=== PATIENT | female | born 1955 | race Caucasian/White ===

== ENCOUNTER → 2018-03-28 | Day surgery (SDC) | payer OTHER ==
[~2018-03-28] MED LIST: AMLODIPINE BESYL5 MG PO; AMLODIPINE-BEN1 EAC5 PO; ATORVASTATIN CA20 MG PO; BENAZEPRIL HCL20 MG PO; CYCLOBENZAPRINE10 MG PO; FENTANYL CITRATE/PF 100MCG/2 ML INJ ONE; HYOSCYAMINE SULFATE 0.5 MG/ML AMP ONE; MIDAZOLAM HCL 2 MG/2 ML VIAL ONE; NP THYROID60 MG PO; ONDANSETRON HCL INJ 2 MG/ML VIAL ONE; PANTOPRAZOLE SO40 MG PO; PROPOFOL IV EMULSION 10 MG/ML 50 ML VIAL ONE
[2018-03-28 09:40] VITALS: BP 133/73
--- NOTE | 2018-03-28 09:47 | Operative Report ---
DATE OF PROCEDURE: March 28, 2018 REFERRING PHYSICIAN: Dr. Rosendo Pompa PROCEDURE PERFORMED: Colonoscopy and polypectomy with biopsies. INDICATIONS FOR COLONOSCOPY: Constipation and history of colon polyps. MEDICATION: Patient was done under MAC. Please see anesthesiologist's note. PROCEDURE: With the patient in the left lateral decubitus position, the flexible fiberoptic Olympus colonoscope was inserted into the rectum with ease and passed with some difficulty all the way to the cecum. The sigmoid colon were sharply angulated and fixed, and was negotiated with some difficulty and suboptimally visualized. The scope was then withdrawn slowly and an 1 cm sessile polyp was noted in the cecum that was snared. Polypectomy site was hot biopsied. One minute polyp was hot biopsied from the cecum also. Diverticular disease was noted to be scattered throughout. The scope was then withdrawn slowly. Mucosa overlying the ascending colon appeared to be within normal limits. One polyp was hot biopsied from the transverse colon. One polyp was hot biopsied from the descending colon. The sigmoid colon as mentioned previously was sharply angulated and fixed, and even on the way out the proximal and midsigmoid was suboptimally visualized. There was a either a fairly prominent fold or lipoma in the proximal sigmoid colon and that was biopsied. The rectum grossly appeared to be within normal limits. The scope was then retroflexed into the distal rectum and small internal hemorrhoids were noted, none of which was actively bleeding. The scope was then straightened out. The rectosigmoid area, as well as the distal rectal area were decompressed. The scope was subsequently withdrawn. Patient tolerated the procedure well. IMPRESSION 1. Cecal polyps times 2, one snare and site hemoclipped, and 1 hot biopsied. 2. Cervantes diverticulosis. 3. Transverse colon polyp hot biopsied times 1. 4. Descending colon polyp hot biopsied times 1. 5. Sigmoid colon sharply angulated and fixed. Negotiated with difficulty and suboptimally visualized. 6. ?Lipoma in proximal sigmoid colon, biopsied. 7. Internal hemorrhoids, none actively bleeding. PLAN: Follow up histology. Initiate of Cassie 145 mcg 1 p.o. q.a.m. a.c. Timing of followup colonoscopy pending pathology report. Patient will need a CT scan of the abdomen and pelvis if not done already, and even possibly an air contrast barium enema for visualization of the sigmoid colon. Job#: [id number] RI cc: ROSENDO POMPA MD
== END | disposition home or self-care (01) ==
LOC: OR 07:11
PROVIDERS: ATTEND Internal Medicine Gastroenterology
DX: K59.00 Constipation, unspecified (principal); Z86.010 Personal history of colon polyps; K21.9 Gastro-esophageal reflux disease without esophagitis; I10 Essential (primary) hypertension; E78.00 Pure hypercholesterolemia, unspecified; K56.2 Volvulus; Z88.6 Allergy status to analgesic agent; Z68.35 Body mass index [BMI] 35.0-35.9, adult; D12.0 Benign neoplasm of cecum; K57.30 Diverticulosis of large intestine without perforation or abscess without bleeding; K63.5 Polyp of colon; K64.8 Other hemorrhoids; E78.5 Hyperlipidemia, unspecified; E05.90 Thyrotoxicosis, unspecified without thyrotoxic crisis or storm
CPT/HCPCS: 45384; 45385; 93005; J1980; J2250; J2405; 45378; 45380

== ENCOUNTER → 2019-05-02 | Outpatient (CLI) | payer OTHER ==
[~2019-05-02] MED LIST changes: -FENTANYL CITRATE/PF 100MCG/2 ML INJ ONE; -HYOSCYAMINE SULFATE 0.5 MG/ML AMP ONE; -MIDAZOLAM HCL 2 MG/2 ML VIAL ONE; -ONDANSETRON HCL INJ 2 MG/ML VIAL ONE; -PROPOFOL IV EMULSION 10 MG/ML 50 ML VIAL ONE
--- NOTE | 2019-05-02 12:29 | Diagnostic Imaging Report ---
EXAM: FL BARIUM ENEMA AIR AND BARIUM DOUBLE CONTRAST INDICATION: V76.51: Special screening for malignant neoplasms, colon. COMPARISON: None available. 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 Multiple bilateral pelvic phleboliths noted RECTUM: Mucosa: Unremarkable. Distensibility: Normal. SIGMOID COLON: Redundant sigmoid colon. ASCENDING, TRANSVERSE, AND DESCENDING COLON: Normal distensibility and mucosal appearance. Several distal descending colon diverticuli. CECUM AND APPENDIX: Normally distensible and demonstrates normal contours and mucosal pattern. No substantial reflux into the terminal ileum Fluoroscopy Time: 0.8 minutes Radiation dose: 22.8 mGy IMPRESSION: Redundant sigmoid colon. Several distal descending colon diverticuli. Otherwise, normal exam. Signed by: Eneida Gauthier MD on 05/02/2019 12:25 PM
== END ==
LOC: DX 08:26
PROVIDERS: ATTEND Internal Medicine Gastroenterology
DX: Z12.11 Encounter for screening for malignant neoplasm of colon (principal)
CPT/HCPCS: 74280

== ENCOUNTER 2019-09-06 06:10 | Inpatient (IN) | payer OTHER ==
[2019-09-01 14:57] LABS: BASOPHILS # (AUTO) 0.1 (0.0-0.1); BASOPHILS % 0.9 % (0.0-1.0); EOSINOPHILS # (AUTO) 0.4 (0.0-0.4); EOSINOPHILS % 3.9 % (0.0-6.0); HEMATOCRIT 42.4 % (34.2-44.1); HEMOGLOBIN 13.2 g/dL (12.0-16.0); LYMPHOCYTES # (AUTO) 2.7 (1.0-3.2); LYMPHOCYTES % 26.5 % (18.0-39.1); MEAN CORPUSCULAR HEMOGLOBIN 24.4 pg (28-32); MEAN CORPUSCULAR HGB CONC 31.1 g/dL (31-35); MEAN CORPUSCULAR VOLUME 78.4 fL (81-99); MONOCYTES # (AUTO) 0.9 (0.2-0.8); MONOCYTES % 9.1 % (4.4-11.3); NEUTROPHILS % 59.3 % (38.7-80.0); PLATELET COUNT 285 x10e3/uL (140-360); RED BLOOD COUNT 5.41 x10e6/uL (3.6-5.1); RED CELL DISTRIBUTION WIDTH 15.5 % (11.7-14.4)
--- NOTE | 2019-09-01 15:06 | Diagnostic Imaging Report ---
EXAMINATION: CHEST 2 VIEWS INDICATION: ^PRE-OP ^[id number] ^[id number] COMPARISON: None FINDINGS: PA and lateral views TUBES and LINES: None. LUNGS: Lungs are well inflated. Lungs are clear. There is no evidence of pneumonia or pulmonary edema. PLEURA: No pleural effusion or pneumothorax. HEART AND MEDIASTINUM: The cardiomediastinal silhouette is unremarkable. BONES AND SOFT TISSUES: No acute osseous lesion. Soft tissues are unremarkable. UPPER ABDOMEN: No free air under the diaphragm. IMPRESSION: No acute thoracic radiographic abnormality. Signed by: Nixon Carrasco MD on 09/01/2019 3:03 PM
[2019-09-01 15:13] LABS: ANION GAP 14.5 mmol/L (8-16); CALCIUM 9.7 mg/dL (8.4-10.2); CREATININE, SERUM 1.06 mg/dL (0.57-1.11); POTASSIUM 4.5 mmol/L (3.5-5.1)
[~2019-09-06] VITALS: Ht 160 cm; Wt 85.3 kg
[2019-09-06] VITALS (7 sets, daily range): BP systolic 90–101; BP diastolic 60–78
[~2019-09-06 06:10] MED LIST changes: +VITAMIN B-121000 MC2 PO
[2019-09-06] MEDS ORDERED: ACETAMINOPHEN 1000 MG/100 ML 100 ML IV ONE (08:42)
[2019-09-06] MEDS ORDERED: SCOPOLAMINE 1.5 MG PATCH ONE (08:42)
[2019-09-06] MEDS ORDERED: MINERAL OIL STERILE 10ML VIAL ONE (11:49)
[2019-09-06] MEDS ORDERED: GLYCOPYRROLATE INJ 0.2 MG/ML VIAL ONE (13:35)
[2019-09-06] MEDS ORDERED: NEOSTIGMINE 1 MG/ML 10ML VIAL ONE (13:35)
[2019-09-06] MEDS ORDERED: ONDANSETRON HCL INJ 2MG/ML 2ML 2 MG/ML VIAL ONE (13:35)
[2019-09-06] MEDS ORDERED: LIDOCAINE HCL 2% LOCAL INJ 5 ML SDV VIAL INJ ONE (13:35)
[2019-09-06] MEDS ORDERED: DEXAMETHASONE SOD PHOS INJ 4 MG/ML VIAL ONE (13:35)
[2019-09-06] MEDS ORDERED: ROCURONIUM BROMIDE 10 MG/ML 5ML VIAL ONE (13:35)
[2019-09-06] MEDS ORDERED: ACETAMINOPHEN 1000 MG/100 ML IV ONE (13:35)
[2019-09-06] MEDS ORDERED: PROPOFOL IV EMULSION 10 MG/ML 20 ML VIAL ONE (13:35)
[2019-09-06] MEDS ORDERED: SEVOFLURANE INHAL SOLN 250 ML PEN BTL ONE (13:35)
[2019-09-06] MEDS: SODIUM CHLORIDE 0.9% 1000ML 1,000 ML IV SCH ×2 (13:55→18:45)
[2019-09-06] MEDS ORDERED: NALOXONE HCL INJ 0.4 MG/ML AMP IV PRN (14:00)
[2019-09-06] MEDS ORDERED: HYDROMORPHONE 0.2MG/ML-SOD CHL 30ML PCA SYRINGE IV PRN (14:00)
[2019-09-06] MEDS ORDERED: ONDANSETRON HCL INJ 2MG/ML 2ML 2 MG/ML VIAL IV PRN (14:00)
[2019-09-06] MEDS ORDERED: HYDROMORPHONE 1MG/1ML INJ ONE (14:26)
[2019-09-06] MEDS ORDERED: PANTOPRAZOLE 40 MG 10ML VIAL IV SCH (16:00)
--- NOTE | 2019-09-06 16:18 | Operative Report ---
DATE OF PROCEDURE: 09/06/2019 SURGEON: Vega Penn MD PREOPERATIVE DIAGNOSES: Mass of the sigmoid colon with partial colonic obstruction and diverticulosis. POSTOPERATIVE DIAGNOSES: Mass of the sigmoid colon with partial colonic obstruction and diverticulosis. OPERATIONS PERFORMED: Exploratory laparotomy and low-anterior resection. ASSISTANTS: 1. Dr. Eddi Penn. 2. ILSA Whelan. ANESTHESIA: General. COMPLICATIONS: None. ESTIMATED BLOOD LOSS: 150 mL. DESCRIPTION OF PROCEDURE: With the patient lying in bed in the supine position with the legs in stirrups, the abdomen and perineum were prepped with Betadine solution and draped in the usual manner. A lower mid abdominal incision was made. It was carried down through the subcutaneous tissue down to the fascia from the patient's previous multiple surgeries. There was, however, a lot of adhesions. She had a plication of the abdominal wall and there were multiple Mersilene sutures that were removed. The midline fascia was then opened. The peritoneum was opened and the abdomen was entered. Upon entering the abdominal cavity, exploration revealed a palpable mass in the sigmoid colon with a tattoo that had previously been placed. There was lot of adhesions down in the pelvis with the sigmoid colon making a couple of loops down in the pelvis. There was some diverticulosis of the sigmoid colon. There was also multiple intra-abdominal adhesions from the patient's previous surgery. The patient had a hysterectomy, both ovaries were in place and appeared normal. We decided to go ahead and proceed with the planned colon resection. The left colon was then mobilized over the lateral gutter. The left ureter was identified and preserved. The left colon was then divided at the level of the descending colon with TEOFILO stapler. The mesentery of the colon was then slowly and carefully taken down using the EnSeal device. The adhesions in the pelvis were taken down and the colon was freed up. After this was done, the upper rectum was then freed up and divided between clamps and the specimen was sent for pathological examination. The descending colon easily reached down into the pelvis and the anastomosis was then performed. A posterior row of 2-0 silk was placed and after this was done, the clamp and the staple line of the proximal colon were removed. An internal row, the anastomosis was then performed with 3-0 chromic suture. Gloves and instruments were then changed. The anastomosis was then completed with an anterior row of seromuscular 3-0 silk. This gave us a satisfactory closure without any tension. The whole area was then thoroughly irrigated. Perfect hemostasis was ascertained. Some surrounding omentum was then tacked in the area to further cover the anastomosis. A 10 flat Humble-Ingram drain was then left in the pelvis and brought out through a separate stab wound incision and sutured to the skin with 2-0 silk and the wound was then closed in layers. The peritoneum was closed with a running suture of #1 Vicryl. The midline fascia was closed with a running suture of #1 Vicryl. The subcutaneous tissue was approximated with 2-0 Vicryl and the skin was closed with clips. A dressing was applied. The sponge, lap, and needle count was correct. The patient tolerated the procedure well and returned to the recovery room in stable condition. MD SAMIRA Lou/PAULINO /[id number]
[2019-09-06] MEDS ORDERED: HYDRALAZINE HCL 20 MG/ML VIAL IV PRN (16:30)
[2019-09-06] MEDS ORDERED: DICYCLOMINE HCL10 MG PO (17:03)
[2019-09-06] MEDS: PANTOPRAZOLE 40 MG 10ML VIAL IV SCH (17:34)
[2019-09-06] MEDS: SODIUM CHLORIDE 0.9% 250ML IRRIG IR SCH ×3 (17:34→21:25)
[2019-09-06] MEDS ORDERED: ACETAMINOPHEN 1000 MG/100 ML IV PRN (18:00)
[2019-09-06] MEDS ORDERED: MIDAZOLAM HCL 2 MG/2 ML VIAL ONE (18:14)
[2019-09-06] MEDS ORDERED: FENTANYL CITRATE/PF 100MCG/2 ML INJ ONE (18:14)
[2019-09-06] MEDS: PIPER-TAZ 3.375 GM 50 ML IV SCH ×2 (18:45→23:17)
[2019-09-07] VITALS (7 sets, daily range): BP systolic 96–135; BP diastolic 69–77
[2019-09-07] MEDS: SODIUM CHLORIDE 0.9% 250ML IRRIG IR SCH ×6 (02:15→21:31)
[2019-09-07] MEDS: PIPER-TAZ 3.375 GM 50 ML IV SCH ×3 (05:16→19:25)
[2019-09-07 05:41] LABS: BASOPHILS % 0.1 % (0.0-1.0); EOSINOPHILS % 0.1 % (0.0-6.0); HEMATOCRIT 38.1 % (34.2-44.1); HEMOGLOBIN 11.9 g/dL (12.0-16.0); LYMPHOCYTES # (AUTO) 0.8 (1.0-3.2); LYMPHOCYTES % 4.9 % (18.0-39.1); MEAN CORPUSCULAR HEMOGLOBIN 24.5 pg (28-32); MEAN CORPUSCULAR HGB CONC 31.2 g/dL (31-35); MEAN CORPUSCULAR VOLUME 78.6 fL (81-99); MONOCYTES # (AUTO) 0.8 (0.2-0.8); MONOCYTES % 4.8 % (4.4-11.3); NEUTROPHILS % 89.6 % (38.7-80.0); PLATELET COUNT 294 x10e3/uL (140-360); RED BLOOD COUNT 4.85 x10e6/uL (3.6-5.1); RED CELL DISTRIBUTION WIDTH 15.4 % (11.7-14.4)
[2019-09-07 06:04] LABS: ANION GAP 13.1 mmol/L (8-16); CALCIUM 8.8 mg/dL (8.4-10.2); CREATININE, SERUM 1.15 mg/dL (0.57-1.11); POTASSIUM 5.1 mmol/L (3.5-5.1)
[2019-09-07] MEDS: PANTOPRAZOLE 40 MG 10ML VIAL IV SCH (09:47)
[2019-09-07] MEDS: SODIUM CHLORIDE 0.9% 1000ML 1,000 ML IV SCH ×4 (10:40→21:55)
[2019-09-08] VITALS (8 sets, daily range): BP systolic 100–135; BP diastolic 67–77
[2019-09-08] MEDS: PIPER-TAZ 3.375 GM 50 ML IV SCH ×4 (00:21→17:55)
[2019-09-08] MEDS: SODIUM CHLORIDE 0.9% 250ML IRRIG IR SCH ×4 (02:30→14:02)
[2019-09-08] MEDS: SODIUM CHLORIDE 0.9% 1000ML 1,000 ML IV SCH ×3 (06:07→20:21)
[2019-09-08 06:10] LABS: BASOPHILS % 0.2 % (0.0-1.0); EOSINOPHILS % 0.1 % (0.0-6.0); HEMATOCRIT 35.8 % (34.2-44.1); HEMOGLOBIN 10.6 g/dL (12.0-16.0); LYMPHOCYTES # (AUTO) 1.6 (1.0-3.2); LYMPHOCYTES % 12.8 % (18.0-39.1); MEAN CORPUSCULAR HGB CONC 29.6 g/dL (31-35); MEAN CORPUSCULAR VOLUME 81.2 fL (81-99); MONOCYTES # (AUTO) 1.2 (0.2-0.8); MONOCYTES % 9.5 % (4.4-11.3); NEUTROPHILS # (AUTO) 9.4 (2.1-6.9); NEUTROPHILS % 77.1 % (38.7-80.0); PLATELET COUNT 257 x10e3/uL (140-360); RED BLOOD COUNT 4.41 x10e6/uL (3.6-5.1); RED CELL DISTRIBUTION WIDTH 15.9 % (11.7-14.4)
[2019-09-08 06:37] LABS: ANION GAP 10.9 mmol/L (8-16); CALCIUM 9.1 mg/dL (8.4-10.2); CREATININE, SERUM 1.03 mg/dL (0.57-1.11); POTASSIUM 4.9 mmol/L (3.5-5.1)
[2019-09-08] MEDS ORDERED: BISACODYL 10 MG SUPP PR ONE (08:00)
[2019-09-08] MEDS: PANTOPRAZOLE 40 MG 10ML VIAL IV SCH (10:03)
[2019-09-08] MEDS: HYDROMORPHONE 1MG/1ML INJ IV PRN ×2 (18:29→20:20)
[2019-09-08] MEDS: BISACODYL 10 MG SUPP PR SCH (20:21)
[2019-09-09] VITALS (8 sets, daily range): BP systolic 111–148; BP diastolic 64–79
[2019-09-09] MEDS: PIPER-TAZ 3.375 GM 50 ML IV SCH ×5 (00:12→23:03)
[2019-09-09] MEDS: HYDROMORPHONE 1MG/1ML INJ IV PRN ×3 (01:20→23:03)
[2019-09-09] MEDS: SODIUM CHLORIDE 0.9% 1000ML 1,000 ML IV SCH ×2 (01:36→13:49)
[2019-09-09] MEDS: BISACODYL 10 MG SUPP PR SCH (07:52)
[2019-09-09 09:37] LABS: BASOPHILS % 0.3 % (0.0-1.0); EOSINOPHILS # (AUTO) 0.2 (0.0-0.4); EOSINOPHILS % 2.4 % (0.0-6.0); HEMATOCRIT 36.6 % (34.2-44.1); HEMOGLOBIN 10.9 g/dL (12.0-16.0); LYMPHOCYTES % 19.3 % (18.0-39.1); MEAN CORPUSCULAR HEMOGLOBIN 23.7 pg (28-32); MEAN CORPUSCULAR HGB CONC 29.8 g/dL (31-35); MEAN CORPUSCULAR VOLUME 79.7 fL (81-99); MONOCYTES % 9.5 % (4.4-11.3); NEUTROPHILS % 68.1 % (38.7-80.0); PLATELET COUNT 254 x10e3/uL (140-360); RED BLOOD COUNT 4.59 x10e6/uL (3.6-5.1); RED CELL DISTRIBUTION WIDTH 15.4 % (11.7-14.4)
[2019-09-09 09:49] LABS: BLOOD UREA NITROGEN 13 mg/dL (7-26); BUN/CREATININE RATIO 16 (6-25); CALCIUM 9.3 mg/dL (8.4-10.2); CARBON DIOXIDE 28 mmol/L (22-29); CHLORIDE 103 mmol/L (98-107); CREATININE, SERUM 0.81 mg/dL (0.57-1.11); EST GLOMERULAR FILTRATION RATE > 60 ML/MIN (60-); GLUCOSE 73 mg/dL (74-118); SODIUM 139 mmol/L (136-145)
[2019-09-09] MEDS: PANTOPRAZOLE 40 MG 10ML VIAL IV SCH (09:57)
--- NOTE | 2019-09-09 11:57 | Progress Note ---
DATE: 09/09/2019 CHIEF COMPLAINT/HISTORY OF PRESENT ILLNESS: This is a 64-year-old white woman, who underwent exploratory laparotomy with low-anterior resection as well as sigmoid colon mass resection. The patient has underlying history of hypertensive heart disease. The patient currently voiced no complaints. The patient denies any nausea or vomiting. The patient has had abdominal pain. Blood work today reveals a white blood cell count 10,200 with 68% segmenters. Hemoglobin is 10.9 g. The patient's chemistries are within normal limits. REVIEW OF SYSTEMS: As per HPI. PHYSICAL EXAMINATION: GENERAL: She is awake, alert, and fully oriented, in no distress, very pleasant and calm. VITAL SIGNS: Blood pressure is 146/78, pulse 80, respiratory rate is 14, oxygen saturation 98% on room air, and temperature 98.5. Height 5 feet 3 inches, weighs 180 pounds, BMI 33. INTEGUMENT: Skin is warm and dry. No pallor, jaundice, or diaphoresis. HEENT: Anicteric sclerae. Moist mucous membranes. NECK: Supple. CARDIOVASCULAR: Distant heart sounds. Regular rhythm. LUNGS: No rales. No rhonchi or wheezes. ABDOMEN: Soft. Normal bowel sounds. The surgical incision is currently dressed. EXTREMITIES: No edema or deformity. NEURO: Intact. DIAGNOSES: 1. Status post exploratory laparotomy with low-anterior and sigmoid colon mass resection. 2. Hypertension. 3. Mild obesity, BMI 33. PLAN: 1. Follow complete blood count. 2. Follow renal function and electrolytes. 3. We will likely start clear liquids today. 4. Encourage incentive spirometer usage to prevent atelectasis. I spent 25 minutes in the care of this patient. MD LAURA Breaux/PAULINO /[id number] MAAME
[2019-09-10] VITALS (7 sets, daily range): BP systolic 125–171; BP diastolic 70–101
[2019-09-10] MEDS: SODIUM CHLORIDE 0.9% 1000ML 1,000 ML IV SCH (03:29)
[2019-09-10] MEDS: PIPER-TAZ 3.375 GM 50 ML IV SCH ×4 (06:03→23:39)
[2019-09-10 07:03] LABS: BASOPHILS % 0.4 % (0.0-1.0); EOSINOPHILS # (AUTO) 0.4 (0.0-0.4); EOSINOPHILS % 4.2 % (0.0-6.0); HEMATOCRIT 35.6 % (34.2-44.1); HEMOGLOBIN 11.3 g/dL (12.0-16.0); LYMPHOCYTES # (AUTO) 1.9 (1.0-3.2); LYMPHOCYTES % 20.5 % (18.0-39.1); MEAN CORPUSCULAR HEMOGLOBIN 24.6 pg (28-32); MEAN CORPUSCULAR HGB CONC 31.7 g/dL (31-35); MEAN CORPUSCULAR VOLUME 77.6 fL (81-99); MONOCYTES # (AUTO) 0.9 (0.2-0.8); NEUTROPHILS % 64.6 % (38.7-80.0); PLATELET COUNT 254 x10e3/uL (140-360); RED BLOOD COUNT 4.59 x10e6/uL (3.6-5.1)
[2019-09-10 07:27] LABS: ALANINE AMINOTRANSFERASE 25 IU/L (0-55); ALBUMIN 2.7 g/dL (3.5-5.0); ALBUMIN/GLOBULIN RATIO 0.7 (0.8-2.0); ALKALINE PHOSPHATASE 68 IU/L (40-150); ANION GAP 13.8 mmol/L (8-16); BLOOD UREA NITROGEN 9 mg/dL (7-26); BUN/CREATININE RATIO 12 (6-25); CALCIUM 9.3 mg/dL (8.4-10.2); CARBON DIOXIDE 31 mmol/L (22-29); CHLORIDE 101 mmol/L (98-107); CREATININE, SERUM 0.76 mg/dL (0.57-1.11); EST GLOMERULAR FILTRATION RATE > 60 ML/MIN (60-); GLUCOSE 82 mg/dL (74-118); POTASSIUM 3.8 mmol/L (3.5-5.1); SODIUM 142 mmol/L (136-145)
[2019-09-10] MEDS: PANTOPRAZOLE 40 MG 10ML VIAL IV SCH (09:21)
--- NOTE | 2019-09-10 11:00 | Progress Note ---
DATE: 09/10/2019 CHIEF COMPLAINT/HISTORY OF PRESENT ILLNESS: This is a 64-year-old white woman whose primary treating diagnosis is recent exploratory laparotomy with sigmoid mass resection. The patient has underlying history of hypertension. The patient currently voiced no complaints. The patient denies any nausea or vomiting. The patient states her pain is controlled. Blood work today on September 10, 2019, revealed white blood cell count 9200 with 64% segmenters. Hemoglobin is 11.3 g/dL. Also today, the patient's potassium is 3.8. The patient's BUN and creatinine of 9 and 0.76 respectively. Albumin level is 2.7 g/dL. The final diagnosis on the colonic mass is negative for malignancy. The pathology states that this obstructing mass is an ulcerated, pedunculated submucosal lipoma. The patient states that she is tolerating clear liquids quite well. REVIEW OF SYSTEMS: As per HPI. PHYSICAL EXAMINATION: GENERAL: She is awake, alert and fully oriented. She is very pleasant and cooperative with exam. VITAL SIGNS: Blood pressure is 160/70, pulse 86, respiratory rate is 18, oxygen saturation 92% on room air, temperature is 98.0, height 5 feet 3 inches, weight 180 pounds, and BMI 33. INTEGUMENT: Skin is warm and dry. No pallor, jaundice, or diaphoresis. HEENT: Anicteric sclerae. Moist mucous membranes. NECK: Supple. CARDIOVASCULAR: Distant heart sounds. Regular rate and rhythm, S4 gallop. LUNGS: No rales. No rhonchi or wheezes. ABDOMEN: Soft. She does have bowel sounds. EXTREMITIES: No edema or deformity. NEUROLOGIC: Intact. DIAGNOSES: 1. Status post exploratory laparotomy with benign sigmoid mass (lipoma) resection. 2. Postoperative anemia. 3. Hypertensive heart disease. PLAN: 1. Stop intravenous fluids. 2. Resume home blood pressure medications. 3. Convert intravenous pantoprazole to the oral form. 4. Encourage mobilization via ambulation. 5. Encourage incentive spirometer usage to prevent atelectases. 6. Discontinue telemetry. 7. The patient's advancement of diet as per General Surgery. I spent 35 minutes in the care of this patient. MD LAURA Breaux/PAULINO /[id number] MAAME
[2019-09-10] MEDS: BENAZEPRIL HCL 10 MG TAB PO SCH (12:38)
[2019-09-10] MEDS: AMLODIPINE BESYLATE 10 MG TAB PO SCH (12:39)
[2019-09-10] MEDS: CYANOCOBALAMIN 1,000 MCG TAB PO SCH (12:39)
[2019-09-10] MEDS: HYDROCODONE/APAP 7.5MG-325MG 1 EA TAB PO PRN (16:56)
[2019-09-11 00:59] VITALS: BP 144/69
[2019-09-11] MEDS: PIPER-TAZ 3.375 GM 50 ML IV SCH ×3 (05:46→18:00)
[2019-09-11 05:52] VITALS: BP 136/76
[2019-09-11 06:49] LABS: BASOPHILS % 0.5 % (0.0-1.0); EOSINOPHILS # (AUTO) 0.3 (0.0-0.4); EOSINOPHILS % 3.3 % (0.0-6.0); HEMATOCRIT 36.3 % (34.2-44.1); HEMOGLOBIN 11.6 g/dL (12.0-16.0); LYMPHOCYTES # (AUTO) 1.6 (1.0-3.2); LYMPHOCYTES % 18.1 % (18.0-39.1); MEAN CORPUSCULAR HEMOGLOBIN 24.2 pg (28-32); MEAN CORPUSCULAR VOLUME 75.6 fL (81-99); MONOCYTES # (AUTO) 0.8 (0.2-0.8); MONOCYTES % 9.3 % (4.4-11.3); NEUTROPHILS % 68.1 % (38.7-80.0); PLATELET COUNT 272 x10e3/uL (140-360)
[2019-09-11 07:22] LABS: ALANINE AMINOTRANSFERASE 24 IU/L (0-55); ALBUMIN 2.7 g/dL (3.5-5.0); ALBUMIN/GLOBULIN RATIO 0.7 (0.8-2.0); ALKALINE PHOSPHATASE 69 IU/L (40-150); ANION GAP 13.8 mmol/L (8-16); BLOOD UREA NITROGEN 8 mg/dL (7-26); BUN/CREATININE RATIO 10 (6-25); CALCIUM 9.6 mg/dL (8.4-10.2); CARBON DIOXIDE 33 mmol/L (22-29); CHLORIDE 98 mmol/L (98-107); CREATININE, SERUM 0.81 mg/dL (0.57-1.11); EST GLOMERULAR FILTRATION RATE > 60 ML/MIN (60-); GLUCOSE 98 mg/dL (74-118); POTASSIUM 3.8 mmol/L (3.5-5.1); SODIUM 141 mmol/L (136-145)
[2019-09-11 08:11] VITALS: BP 133/77
[2019-09-11 08:15] VITALS: BP 133/77
[2019-09-11] MEDS: HYDROCODONE/APAP 7.5MG-325MG 1 EA TAB PO PRN (08:43)
[2019-09-11] MEDS: BENAZEPRIL HCL 10 MG TAB PO SCH (08:51)
[2019-09-11] MEDS: CYANOCOBALAMIN 1,000 MCG TAB PO SCH (08:52)
[2019-09-11] MEDS: AMLODIPINE BESYLATE 10 MG TAB PO SCH (08:52)
[2019-09-11] MEDS ORDERED: PANTOPRAZOLE SOD 40 MG TABEC PO SCH (09:00)
[2019-09-11 12:30] VITALS: BP 118/76
[2019-09-11] MEDS ORDERED: BISACODYL 10 MG SUPP PR ONE (14:15)
[2019-09-11 16:56] VITALS: BP 131/76
[2019-09-11] MEDS ORDERED: NORCO 7.5-3251 EACH PO (18:14)
[2019-09-11] MEDS ORDERED: LEVAQUIN500 MG PO (18:14)
== END 2019-09-11 19:19 | disposition home or self-care (01) | DRG 330 ==
LOC: OR 06:10 → PACU V 13:58 → IMCU 15:39 → MED/SURG 09-09 22:34
PROVIDERS: ADMIT Surgery; ATTEND Surgery
PROC: 0DTG0ZZ Resection of Left Large Intestine, Open Approach (ICD-10-PCS; principal; 2019-09-06 10:31)
DX: D17.5 Benign lipomatous neoplasm of intra-abdominal organs (principal); D62 Acute posthemorrhagic anemia; K57.30 Diverticulosis of large intestine without perforation or abscess without bleeding; K63.9 Disease of intestine, unspecified; I10 Essential (primary) hypertension; I11.9 Hypertensive heart disease without heart failure; Z68.33 Body mass index [BMI] 33.0-33.9, adult; E66.9 Obesity, unspecified; K21.9 Gastro-esophageal reflux disease without esophagitis; E78.5 Hyperlipidemia, unspecified; K58.9 Irritable bowel syndrome, unspecified
CPT/HCPCS: 36415; 71046; 80048; 80053; 85025; 88307; 93005; 99251; J0360; J1100; J1170; J2001; J2250; J2405; J2543; J2710; J3010; J7030